=== PATIENT | male | born 2000 | race Caucasian/White ===

== ENCOUNTER 2024-03-19 11:57 | Day surgery (SDC) | payer OTHER, SELFPAY ==
--- NOTE | 2024-03-19 | PATH_ITS ---
[facility] Accession Number: [id number] No. of containers..01 Tissue . 01 Material submitted: . body - RANDOM BIOPSIES . 01 Diagnosis: Colon, random, biopsies: Fragments of benign colonic mucosa, with benign lymphoid follicle. Negative for histologic features of microscopic colitis. Negative for active or chronic colitis. See comment. -- Comment: Immunohistochemical stains performed with appropriate controls to evaluate lymphoid aggregate, and scattered mast cells seen show: CD3, and CD20: highlight scattered T and B cells, respectively, and benign lymphoid follicle. CD117: Highlight scattered normal mast cells. -- Technical Note: The immunohistochemical stains reported were performed at [facility] ([address] [place], [place] [address]e [address], [facility] [address]). They were developed and their performance characteristics determined by [facility]. They have not been cleared or approved by the U.S. Food and Drug Administration, although such approval is not required for analyte-specific reagents of this type. TXN 03/24/2024 1511 Local . 01 Electronically signed: . Isaiah Mcdowell MD, Pathologist NPI- [id number] . 01 Gross description: . Received in formalin with two patient identifiers and random biopsies, are four sullivan soft tissue fragments, 0.3 to 0.4 cm in greatest dimension. Submitted in A1. ([id number]) /MRV 03/20/2024 1451 Local . 01 Pathologist provided ICD-10: R19.7 . 01 CPT . 195727, L45367, [id number] Specimen Comment: A courtesy copy of this report has been sent to [phone] Performed at: [address] [place] [address] Avenue [address], [place], [place] [id number] MD Naeem Rodríguez MD Phone: [phone]
[2024-03-19 12:17] VITALS: BP 141/85; PULSE 78; RESP 16; TEMP 36.8; O2SAT 100
[2024-03-19] MEDS: LACTATED RINGERS 1,000 ML 42 ML IV (12:32)
--- NOTE | 2024-03-19 13:25 | PM.PREOP ---
Pre-operative Note COVID-19 Result date/Date tested (Pos, Neg/Pending): 03/19/24 Interval Note History & Physical reviewed/Exam performed by Physician: Yes Changes to H&P: No ASA Class (for procedural sedation): II
--- NOTE | 2024-03-19 13:26 | PM.OP.COLON ---
Operative Date/Time/Diagnoses Date of procedure: 03/19/24 Pre-op diagnosis: See indication and findings Procedure & Clinicians Study performed: Colonoscopy Indications: Chronic diarrhea Surgeon: Sukhwinder Li Procedure Notes Procedure in detail: After informed consent was obtained the patient was placed in left lateral decubitus position. The video colonoscope was introduced the rectum slowly advanced cecum. Preparation was good. On slow withdrawal mucosa was carefully examined. The scope was removed. The patient tolerated procedure well. Blood loss none Complications none Sedation mac Findings 1. Normal though tortuous colonoscopy to cecum. Random biopsies taken to rule out microscopic colitis Patient should follow up with Kelechi Boyce in the office or by telephone call
[2024-03-19 13:57] VITALS: BP 107/59; PULSE 69; RESP 12; TEMP 36.1; O2SAT 99
[2024-03-19 14:02] VITALS: BP 100/60; PULSE 61; RESP 13; O2SAT 97
[2024-03-19 14:07] VITALS: BP 115/71; PULSE 65; RESP 23; O2SAT 92
[2024-03-19 14:22] VITALS: BP 112/69; PULSE 67; RESP 20; O2SAT 97
--- NOTE | 2024-03-19 14:58 | PM.HP.1 ---
History of Present Illness History of Present Illness Date Patient Seen: 03/19/24 Chief complaint: SDC Narrative: Diarrhea bloating and abdominal discomfort for [facility] Social History Smoking Status: Never smoker alcohol intake: never Meds Home Medications and Allergies Home Medications Medication Instructions Recorded Confirmed Type No Known Home Medications 03/19/24 03/19/24 History Allergies Allergy/AdvReac Type Severity Reaction Status Date / Time No Known Drug Allergies Allergy Verified 03/19/24 12:33 Exam Vital Signs (past 8 hours): - 03/19/24 12:17 03/19/24 13:57 03/19/24 14:02 Temperature 98.3 F 96.9 F L Pulse Rate 78 69 61 Respiratory Rate 16 12 13 Blood Pressure 141/85 H 107/59 L 100/60 Pulse Oximetry 100 99 97 Oxygen Delivery Method Room Air Room Air Room Air Oxygen Flow Rate 0 03/19/24 14:07 03/19/24 14:22 Temperature Pulse Rate 65 67 Respiratory Rate 23 20 Blood Pressure 115/71 112/69 Pulse Oximetry 92 97 Oxygen Delivery Method Room Air Room Air Oxygen Flow Rate Oxygen Delivery Method Room Air Oxygen Flow Rate 0 Narrative Exam Narrative: Oropharynx free of lesions Chest clear to auscultation percussion Cardiac exam reveals no S3 or murmur Assessment & Plan Assessment & Plan narrative: Bloating diarrhea and abdominal pain need to evaluate for microscopic colitis. Risks, benefits, alternatives have been explained Time-Based Coding :: [TOTAL MINUTES] spent with patient and on the chart (including review of chart, obtaining history, exam, reviewing outside data, placing orders, documenting exam and treatment plan, and counseling patient) on [DATE].
--- NOTE | 2024-03-19 15:00 | PM.OP.COLON ---
Operative Date/Time/Diagnoses Date of procedure: 03/19/24 Pre-op diagnosis: See indication and findings Procedure & Clinicians Study performed: Colonoscopy Indications: Bloating abdominal pain and diarrhea Surgeon: Sukhwinder Li Procedure Notes Procedure in detail: After informed consent was obtained the patient was placed in left lateral decubitus position. The video colonoscope was introduced into the rectum slowly advanced cecum. Preparation was good. On slow withdrawal mucosa was carefully examined. The scope was removed. The patient tolerated procedure well. Blood loss none Complications none Sedation mac Findings 1. Normal colonoscopy to cecum. Biopsies taken to rule out microscopic colitis Will be in touch regarding biopsy findings
== END 2024-03-19 14:27 | disposition home or self-care (01) ==
PROVIDERS: Referring Provider Internal Medicine Gastroenterology; Visit Provider Internal Medicine Gastroenterology
PROC: 0DJD8ZZ Inspection of Lower Intestinal Tract, Via Natural or Artificial Opening Endoscopic (ICD-10-PCS; CPT 45378; principal; 2024-03-19 13:00)
DX: R19.7 Diarrhea, unspecified (principal)
CPT/HCPCS: 45380; J2704